=== PATIENT | male | born 1945 | race Caucasian/White ===

== ENCOUNTER → 2016-04-29 | Outpatient (CLI) | payer OTHER, MEDICARE ==
[2016-02-01 15:30] VITALS: BP 132/71
[~2016-04-29] MED LIST: ASPI81TA2 PO; ATOR40TA59 PO; BUPR75TA5 PO; CARV3.12 PO; DOCU-27 PO; LEVO175T5 PO; LUBI8CAP3 PO; POLY17PO5 PO; SPIR25TA PO; ZOLPIDEM 5 MG TABLET. PO ONE
--- NOTE | 2016-05-02 18:15 | SLEEP ---
DATE OF STUDY: 04/29/2016 ATTENDING PHYSICIAN: Clair Garza DO. The patient is 71 years old who weighs 248 pounds with a BMI of 35. The patient has history of obstructive sleep apnea, which was diagnosed in March 2016. His overall AHI was 15 per hour, but supine AHI was 23 per hour and REM AHI of 98 per hour. He had severe PLMS and also had nocturnal hypoxia. Returned to the sleep lab for titration. During the night of study, the patient spent 423 minutes in bed and slept for 320 minutes with a sleep efficiency of 74%. Sleep latency was 24 minutes with a REM latency of 3 and 9 minutes. Overall, sleep architecture showed increased stage I sleep, normal stage II and stage III sleep and reduced REM sleep. The patient was started on CPAP at 12 cm of water as he was unable to tolerate lower pressure. However, as the CPAP pressure requirement increased, he became intolerant to higher CPAP pressure and then was switched to BiPAP starting at 14/9. The best results were seen at a BiPAP pressure of 20/12. At that pressure, the patient had 99 minutes of sleep. The patient had no supine, but REM sleep was observed. The patient's AHI was 2 per hour. The patient did have mask leak on higher CPAP pressures, but he did better on BiPAP. The patient's oxygen saturation remained above 88% at the final BiPAP pressure. The patient used a medium size full face mask. EKG monitoring revealed normal sinus rhythm, average heart rate was 68 beats per minute. No sustained arrhythmias were observed. PLMS were seen at the index of 152 per hour and 6 per hour caused EEG arousals. IMPRESSION: 1. Sleep apnea diagnosed by previous sleep study. 2. Severe PLMS at an index of 152 per hour and 6 per hour caused EEG arousals. RECOMMENDATIONS: 1. BiPAP at a pressure of 20/12 completely eliminated patient's sleep apnea, and should be used on a nightly basis. 2. Follow up in 4-6 weeks to assess compliance with BiPAP and to document clinical improvement. 3. Weight loss is strongly advised. 4. Avoid POACHER OPERATOR depressants. 5. Caution regarding driving until symptoms of sleep apnea resolve with the use of BiPAP. 6. The patient's PLMS can be treated with dopaminergic agonist agents if patient is clinically symptomatic. The patient should also be further evaluated for symptoms of restless legs during the day. MIKHAIL LEON MD DR: TELMA/gerda JOB#: [id number] / [id number] CLAIR Manning
== END | disposition home or self-care (01) ==
LOC: RT 18:34
PROVIDERS: ATTEND Internal Medicine Critical Care Medicine
DX: G47.33 Obstructive sleep apnea (adult) (pediatric) (principal)
CPT/HCPCS: 95811

== ENCOUNTER → 2016-05-30 | Outpatient (CLI) | payer OTHER, MEDICARE ==
[2016-02-01 15:30] VITALS: BP 132/71
[~2016-05-30] MED LIST changes: -ZOLPIDEM 5 MG TABLET. PO ONE
--- NOTE | 2016-05-30 12:45 | RAD ---
CT of the chest without contrast, 05/30/2016: History: Pulmonary nodule follow-up Noncontrast scans were obtained and compared to a study from 11/06/2013. There are at least 5 calcified and noncalcified small pulmonary nodules in the left upper lobe which appear to be unchanged. A small calcified nodule in the medial aspect of the right and a small subpleural nodule in the anterior aspect of the right upper lobe are both unchanged. Several small nodules in both lower lobes also appear to be unchanged. A small nodule in the posterior costophrenic angle on the left was not visible on the previous study, probably due to obscuration by overlying atelectasis. No enlarging pulmonary nodule is seen. There are a few scattered parenchymal scars. There is no evidence of pleural fluid. The thoracic aorta is of normal caliber. Coronary artery calcifications are present, most extensive in the LAD coronary artery. Several small calcified hilar hilar and mediastinal lymph nodes are seen. No adenopathy is evident. Incidental note is made of a small radiopacity within the posterior aspect of the gallbladder compatible with a gallstone. Moderate hypertrophic spurring is present in the spine. A right shoulder prosthesis is partially visualized. IMPRESSION: 1. Stable small bilateral pulmonary nodules, some of which are calcified. The findings are compatible with old granulomatous disease. 2. Coronary artery disease. 3. Cholelithiasis PQRS Compliance Statement: One or more of the following individualized dose reduction techniques were utilized for this examination: 1. Automated exposure control 2. Adjustment of the mA and/or kV according to patient size 3. Use of iterative reconstruction technique
== END | disposition home or self-care (01) ==
LOC: CT 10:28
PROVIDERS: ATTEND Internal Medicine Critical Care Medicine
DX: R91.8 Other nonspecific abnormal finding of lung field (principal); I25.10 Atherosclerotic heart disease of native coronary artery without angina pectoris; K80.20 Calculus of gallbladder without cholecystitis without obstruction
CPT/HCPCS: 71250

== ENCOUNTER → 2016-07-01 | Outpatient (CLI) | payer OTHER, MEDICARE ==
[2016-02-01 15:30] VITALS: BP 132/71
--- NOTE | 2016-07-01 15:28 | CARD ---
APPROVED REPORT EXAM: Two-dimensional and M-mode echocardiogram with Doppler and color Doppler. Other Information Quality : AverageHR: 63bpm Rhythm : NSR INDICATION Cardiac Disease: CAD 2D DIMENSIONS RVDd3.5 (2.9-3.5cm)Left Atrium(2D)3.9 (1.6-4.0cm) IVSd0.9 (0.7-1.1cm)Aortic Root(2D)2.9 (2.0-3.7cm) LVDd5.0 (3.9-5.9cm)LVOT Diameter2.2 (1.8-2.4cm) PWd0.9 (0.7-1.1cm)LVDs3.4 (2.5-4.0cm) FS (%) 31.0 %SV69.0 ml LVEF(%)58.4 (>50%) Aortic Valve AoV Peak Mj.127.1cm/sAoV VTI27.6cm AO Peak GR.6.5mmHgLVOT Peak Mj.119.3cm/s LVOT VTI 27.52cmAO Mean GR.4mmHg MIRI (VMAX)3.33yf7HDK (VTI)3.79cm2 Mitral Valve MV E Nhpwheyj54.9cm/sMV DECEL [id number] MV A Ebxedfgn60.2cm/sMV E Mean Gr.1mmHg MV MIH70hnW/A Ratio1.1 MV A Ktplvbss247wkVKY (PHT)3.45cm2 TDI E/Lateral E'6.0E/Medial E'6.8 Pulmonary Valve PV Peak Lriyuxbj58.9cm/sPV Peak Grad.3mmHg RVOT VTI14.5cm Tricuspid Valve TR P. Gujiezzw430wv/sRAP DZCKIQUJ0xrYk TR Peak Gr.61qgZsDVTB53oxQc Pulmonary Vein S1 Qnxluswt17.2cm/sD2 Mgnzaewj41.1cm/s PVa qllkqtzb177incb LEFT VENTRICLE The left ventricle is normal size. There is normal left ventricular wall thickness. Left ventricle sy stolic function is normal. The Ejection Fraction is 55-60%. There is normal LV segmental wall motion. There is no ventricular septal defect visualized. RIGHT VENTRICLE The right ventricle is normal size. The right ventricular systolic function is normal. ATRIA The left atrium size is normal. The right atrium size is normal. The interatrial septum is intact wit h no evidence for an atrial septal defect or patent foramen ovale as noted on 2-D or Doppler imaging. AORTIC VALVE The aortic valve is trileaflet. The aortic valve is normal in structure and function. Doppler and Col or Flow revealed no significant aortic regurgitation. There is no significant aortic valvular stenosi s. MITRAL VALVE The mitral valve is normal in structure and function. There is no evidence of mitral valve prolapse. There is no mitral valve stenosis. Doppler and Color Flow revealed no mitral valve regurgitation note d. TRICUSPID VALVE The tricuspid valve is normal in structure. Doppler and Color Flow revealed mild tricuspid regurgitat ion. There is mild pulmonary hypertension. The PA pressure was estimated at 30 mmHg. PULMONIC VALVE The pulmonary valve is normal in structure and function. Doppler and Color Flow revealed no pulmonic valvular regurgitation. GREAT VESSELS The aortic root is normal in size. The ascending aorta is normal in size. Normal pulmonary venous raghavendra w (Doppler). The IVC is normal in size and collapses >50% with inspiration. PERICARDIAL EFFUSION There is no pleural effusion. There is no evidence of significant pericardial effusion. Critical Notification Critical Value: No <Conclusion> Left ventricle systolic function is normal. The Ejection Fraction is 55-60%. There is normal LV segmental wall motion. Mild tricuspid regurgitation. The PA pressure was estimated at 30 mmHg. There is no evidence of significant pericardial effusion.
== END | disposition home or self-care (01) ==
LOC: ECHO 08:45
PROVIDERS: ATTEND Internal Medicine Cardiovascular Disease
DX: I25.10 Atherosclerotic heart disease of native coronary artery without angina pectoris (principal)
CPT/HCPCS: 93306

== ENCOUNTER 2016-10-10 20:10 | Inpatient (IN) | payer OTHER, MEDICARE ==
[~2016-10-10] VITALS: Ht 177.8 cm; Wt 113.9 kg
[~2016-10-10 20:10] MED LIST changes: +ASPI-630 PO; -ASPI81TA2 PO; +DOCU-109 PO; -DOCU-27 PO; -LUBI8CAP3 PO; +LUBI8CAP4 PO; +POLY17PO29 PO; -POLY17PO5 PO
[2016-10-10] MEDS ORDERED: IV NORMAL SALINE 1000ML BAG 1,000 ML IV SCH (21:00)
[2016-10-10 21:05] LABS: BASO # 0.1 x10^3/uL (0.0-0.2); BASO % 1 % (0-3); EOS % 3 % (0-3); HEMATOCRIT 43.3 % (39.0-53.0); HEMOGLOBIN 15.3 g/dL (13.0-17.5); LYMPH # 2.5 x10^3/uL (1.0-4.8); LYMPH % 35 % (24-48); MEAN CORPUSCULAR HEMOGLOBIN 33 pg (25-35); MEAN CORPUSCULAR HGB CONC 35 g/dL (31-37); MEAN CORPUSCULAR VOLUME 93 fL (79-100); MONO % 11 % (0-9); NEUT % 49 % (31-73); PLATELET COUNT 270 x10^3/uL (140-400); RED BLOOD COUNT 4.63 x10^6/uL (4.30-5.70); RED CELL DISTRIBUTION WIDTH 13.5 % (11.5-14.5)
[2016-10-10] MEDS ORDERED: ASPIRIN CHEWABLE 81 MG TABLET. PO ONE (21:15)
[2016-10-10 21:16] LABS: CALCIUM 8.6 mg/dL (8.5-10.1); CREATININE 1.3 mg/dL (0.7-1.3); GFR 54.6; POTASSIUM 4.3 mmol/L (3.5-5.1)
[2016-10-10 21:21] LABS: ALBUMIN 3.7 g/dL (3.4-5.0); TOTAL BILIRUBIN 0.6 mg/dL (0.2-1.0); TOTAL PROTEIN 7.4 g/dL (6.4-8.2)
--- NOTE | 2016-10-10 21:53 | PHYS DOC ---
Past Medical History Past Medical History: COPD, Depression, Hypothyroid, OK, Other Additional Past Medical Histor: lad cardiac stents (jan 23), on cpap, Past Surgical History: Knee Replacement, Other Additional Past Surgical Histo: R shoulder arthroscopy;L knee replacement, hardware L arm, fx sternum/ribs Alcohol Use: None Drug Use: None Adult General Chief Complaint Chief Complaint: CHEST PAIN HPI HPI 8-year-old male with a history of coronary artery disease with 2 stents placed after an OK in January 2016, now presents to the emergency department complaining of chest pain. He is a patient of Dr. Ruiz. Patient states she' s been compliant with his baby aspirin and also takes a blood thinner but is not sure what the name of it is. Today he had mid chest pain associated with shortness of breath. It's now resolved. No nausea vomiting or diaphoresis. No productive cough or fever. Pain is not worse with movement. Currently pain-free Review of Systems Review of Systems Constitutional: Denies fever or chills [] Eyes: Denies change in visual acuity, redness, or eye pain [] HENT: Denies nasal congestion or sore throat [] Respiratory: Denies cough or shortness of breath [] Cardiovascular: No additional information not addressed in HPI [] GI: Denies abdominal pain, nausea, vomiting, bloody stools or diarrhea [] : Denies dysuria or hematuria [] Musculoskeletal: Denies back pain or joint pain [] Integument: Denies rash or skin lesions [] Neurologic: Denies headache, focal weakness or sensory changes [] Endocrine: Denies polyuria or polydipsia [] Current Medications Current Medications Current Medications Medications (Trade) Dose Ordered Sig/Marito Start Time Stop Time Status Last Admin Dose Admin Aspirin (Children'S Aspirin) 324 mg 1X ONCE 10/10/16 21:15 10/10/16 21:16 DC 10/10/16 21:43 324 MG Sodium Chloride 1,000 ml @ 100 mls/hr Q10H 10/10/16 21:00 10/11/16 06:59 10/10/16 21:38 100 MLS/HR Allergies Allergies Allergies Coded Allergies Type Severity Reaction Last Updated Verified No Known Drug Allergies 11/06/13 No Physical Exam Physical Exam Well-appearing 8-year-old male no acute distress nontender chest wall clear lungs regular rate and rhythm no tachycardia benign abdomen normal extremities Constitutional: Well developed, well nourished, no acute distress, non-toxic appearance. [] HENT: Normocephalic, atraumatic, bilateral external ears normal, oropharynx moist, no oral exudates, nose normal. [] Eyes: PERRLA, EOMI, conjunctiva normal, no discharge. [] Neck: Normal range of motion, no tenderness, supple, no stridor. [] Cardiovascular:Heart rate regular rhythm, no murmur [] Lungs & Thorax: Bilateral breath sounds clear to auscultation [] Abdomen: Bowel sounds normal, soft, no tenderness, no masses, no pulsatile masses. [] Skin: Warm, dry, no erythema, no rash. [] Back: No tenderness, no CVA tenderness. [] Extremities: No tenderness, no cyanosis, no clubbing, ROM intact, no edema. [] Neurologic: Alert and oriented X 3, normal motor function, normal sensory function, no focal deficits noted. [] Psychologic: Affect normal, judgement normal, mood normal. [] Current Patient Data Vital Signs Vital Signs Date Time Temp Pulse Resp B/P (MAP) Pulse Ox O2 Delivery O2 Flow Rate FiO2 10/10/16 20:15 98.2 72 26 141/75 (97) 97 Room Air 98.2 Lab Values Laboratory Tests Test 10/10/16 20:25 White Blood Count 7.0 x10^3/uL (4.0-11.0) Red Blood Count 4.63 x10^6/uL (4.30-5.70) Hemoglobin 15.3 g/dL (13.0-17.5) Hematocrit 43.3 % (39.0-53.0) Mean Corpuscular Volume 93 fL (79-100) Mean Corpuscular Hemoglobin 33 pg (25-35) Mean Corpuscular Hemoglobin Concent 35 g/dL (31-37) Red Cell Distribution Width 13.5 % (11.5-14.5) Platelet Count 270 x10^3/uL (140-400) Neutrophils (%) (Auto) 49 % (31-73) Lymphocytes (%) (Auto) 35 % (24-48) Monocytes (%) (Auto) 11 % (0-9) H Eosinophils (%) (Auto) 3 % (0-3) Basophils (%) (Auto) 1 % (0-3) Neutrophils # (Auto) 3.4 x10^3uL (1.8-7.7) Lymphocytes # (Auto) 2.5 x10^3/uL (1.0-4.8) Monocytes # (Auto) 0.8 x10^3/uL (0.0-1.1) Eosinophils # (Auto) 0.2 x10^3/uL (0.0-0.7) Basophils # (Auto) 0.1 x10^3/uL (0.0-0.2) Sodium Level 140 mmol/L (136-145) Potassium Level 4.3 mmol/L (3.5-5.1) Chloride Level 104 mmol/L (98-107) Carbon Dioxide Level 26 mmol/L (21-32) Anion Gap 10 (6-14) Blood Urea Nitrogen 16 mg/dL (8-26) Creatinine 1.3 mg/dL (0.7-1.3) Estimated GFR (Cockcroft-Gault) 54.6 BUN/Creatinine Ratio 12 (6-20) Glucose Level 94 mg/dL (70-99) Calcium Level 8.6 mg/dL (8.5-10.1) Total Bilirubin 0.6 mg/dL (0.2-1.0) Aspartate Amino Transferase (AST) 18 U/L (15-37) Alanine Aminotransferase (ALT) 26 U/L (16-63) Alkaline Phosphatase 79 U/L (46-116) Troponin I Quantitative < 0.017 ng/mL (0.000-0.055) Total Protein 7.4 g/dL (6.4-8.2) Albumin 3.7 g/dL (3.4-5.0) Albumin/Globulin Ratio 1.0 (1.0-1.7) Laboratory Tests 10/10/16 20:25 Laboratory Tests 10/10/16 20:25 EKG EKG Normal sinus rhythm at 71 normal axis no STEMI [] Radiology/Procedures Radiology/Procedures Chest x-ray with chronic changes no acute disease interpreted by me. No sig change prior study [] Course & Med Decision Making Course & Med Decision Making Pertinent Labs and Imaging studies reviewed. (See chart for details) Signs and symptoms consistent with chest pain of possible cardiac etiology in an elderly male with a history of known coronary artery disease and 2 prior stents in January 2016. Patient is currently pain-free. EKG is unremarkable. Chest x-ray benign. Labs including troponin are negative. Discussed with patient and family will do observation admission for cardiac workup. Aspirin given. Case discussed with Dr. Valencia customer operations specialist for Dr. Rowland. Dr. Valencia is aware of the history and findings and agrees with inpatient admission his service for cardiac workup [] Dragon Disclaimer Dragon Disclaimer This electronic medical record was generated, in whole or in part, using a voice recognition dictation system. Departure Departure Impression: Primary Impression: Chest pain Disposition: ADMITTED INPATIENT Admitting Physician: William Valencia Condition: STABLE Referrals: RODRIGO GUY MD (PCP) JESSICA HARTLEY MD Oct 10, 2016 21:53
[2016-10-10] MEDS ORDERED: HYDROcodone/APAP 5/325MG 1 TAB TABLET ONE (22:13)
[2016-10-10] MEDS ORDERED: HYDROcodone/APAP 5/325MG 1 TAB TABLET PO ONE (22:30)
[2016-10-11 00:12] VITALS: BP 96/62
[2016-10-11 03:00] VITALS: BP 88/51
[2016-10-11 07:00] VITALS: BP 90/58
--- NOTE | 2016-10-11 08:20 | RAD ---
EXAM: CHEST 1 VIEW History: Chest pain COMPARISON: 01/28/2016 TECHNIQUE: Single portable radiograph of the chest FINDINGS: The cardiac silhouette is unremarkable. The lungs are clear bilaterally. The costophrenic sulci are clear and well demarcated. IMPRESSION: No radiographic evidence of an acute cardiopulmonary process.
--- NOTE | 2016-10-11 08:43 | PDOC2 ---
CARDIOLOGY CONSULT NOTE CHEIF COMPLAINT: Sharp pains Problems: HPI: Pleasant 71 y.o male coming into the hospital with sharp pains. Was in his usual state of health until yesterday around 4 pm Had some sharp chest pains lasting a few seconds Persistent for 3-4 hours, seen in ER and admitted for rule out acs. At home denies any exertional dyspnea, angina, orthopnea PND or syncope No palpitations, nausea or other issues. Compliant with meds. PMHX: CAD s/p PCI HTN DLP SOCHX: , lives with . No alcohol, tob or illicits. FAMHX: Non-contributory CURRENT MEDS: Home meds reviewed. No changes ALLERGIES: Allergies Coded Allergies Type Severity Reaction Last Updated Verified No Known Drug Allergies 11/06/13 No ROS: negative for 01/17 systems reviewed unless otherwise noted above in HPI. PHYSICAL EXAM: Vital Signs: Vital Signs Date Time Temp Pulse Resp B/P (MAP) Pulse Ox O2 Delivery O2 Flow Rate FiO2 10/11/16 07:00 97.8 68 20 90/58 (69) 96 Room Air 97.8 I & O Intake and Output 10/11/16 07:00 Intake Total 50 ml Output Total 700 ml Balance -650 ml Intake Oral 50 ml Output Urine Total 700 ml # Voids 1 Physical Exam: GEN.: No apparent distress. Alert and oriented. HEENT: Head is normocephalic, atraumatic NECK: Supple. LUNGS: Clear to auscultation. HEART: RRR, S1, S2 present. Peripheral pulses intact ABDOMEN: Soft, nontender. Positive bowel sounds. EXTREMITIES: Without any cyanosis. NEUROLOGIC: Normal speech, normal tone PSYCHIATRIC: Normal affect, normal mood. SKIN: No ulcerations DIAGNOSTIC TESTING: EKG unremarkable. Lab Enzymes negative x 1 after 6 hours of pain. ASSESSMENT: 1. non-cardiac chest pain 2. Previous history of CAD 3. HTn 4 DLP PLAN: Low suspicion for ACS, continue present meds. Will await second troponin. If negative, can DC from CV perspective. Continue same meds at home. Thanks for consult CHAD VILLEGAS MD Oct 11, 2016 08:43
[2016-10-11 11:00] VITALS: BP 106/65
--- NOTE | 2016-10-11 11:38 | EKG ---
[facility] [address] [place] [address] Test Date: 2016-10-10 Test Time: 20:14:16 Pat Name: DAVE MARTINEZ Department: Room: Gender: M Operating Engineer: : [id number] Requested By: JESSICA HARTLEY Order Number: [id number] Reading MD: Measurements Intervals [place] Rate: 71 P: 40 WV: 184 QRS: -2 QRSD: 104 T: 41 QT: 372 QTc: 404 Interpretive Statements SINUS RHYTHM LEFTWARD AXIS QRS(T) CONTOUR ABNORMALITY CANNOT RULE OUT ANTEROSEPTAL MYOCARDIAL DAMAGE RI6.01 Unconfirmed report No previous ECG available for comparison
[2016-10-11] MEDS ORDERED: NITR0.4T22 SL (11:58)
[2016-10-11] MEDS ORDERED: SERT50TA PO (11:58)
[2016-10-11] MEDS ORDERED: LUBIPROSTONE 8 MCG CAPSULE PO SCH (12:00)
[2016-10-11] MEDS ORDERED: LEVOTHYROXINE 175 MCG TABLET PO SCH (12:00)
[2016-10-11] MEDS ORDERED: POLYETHYLENE GLYCOL 3350 17 GM PACKET. PO SCH (12:00)
[2016-10-11] MEDS ORDERED: buPROPion 75 MG TABLET. PO SCH (12:00)
[2016-10-11] MEDS ORDERED: DOCUSATE SODIUM 100 MG CAPSULE. PO SCH (12:00)
[2016-10-11] MEDS ORDERED: ASPIRIN CHEWABLE 81 MG TABLET. PO SCH (12:00)
[2016-10-11] MEDS ORDERED: CARVEDILOL 3.125 MG TABLET. PO SCH (12:00)
[2016-10-11] MEDS ORDERED: SPIRONOLACTONE 25 MG TABLET PO SCH (12:00)
--- NOTE | 2016-10-11 12:00 | PDOC1 ---
History and Physical Date of Admission Date of Admission 10/10/16 Identification/Chief Complaint Chief Complaint chest pain Problems: Source Source: Chart review, Patient History of Present Illness History of Present Illness 71year-old male with a history of coronary artery disease with 2 stents placed after an ME in January 2016, now presents to the emergency department complaining of chest pain. He is a patient of Dr. Ruiz. He is on baby aspirin and also takes a blood thinner but is not sure what the name of it is ( ? plavix or Effient for stent). Today he had mid chest pain associated with shortness of breath described as retrosternal discomfort in the lower part of his sternum that lasted for a few minutes and would come and go he had meatloaf for his dinner and pain started shortly after that he denied indigestion or heartburn, It's now resolved. No nausea vomiting or diaphoresis. No productive cough or fever. Pain is not worse with movement. He has been very emotional and more depressed according to his he was talking about dying when she came from work and he shared with her that he has been having chest pain she made him come to the emergency room then Past Medical History Cardiovascular: ME, Hyperlipidemia Pulmonary: COPD Psych: Anxiety, Depression Rheumatologic: Other (osteoarthritis) ENT: Allergic Rhinitis Endocrine: Hypothyroidism Past Surgical History Past Surgical History: Total knee replacement (left), Other (ARTHROSCOPIC right shoulder surgery) Family History Family History: Hypertension, Other Social History Smoke: No ALCOHOL: rare Drugs: None Current Problem List Problem List Problems Medical Problems: (1) Chest pain Status: Acute Current Medications Current Medications Current Medications Medications (Trade) Dose Ordered Sig/Marito Start Time Stop Time Status Last Admin Dose Admin Acetaminophen/ Hydrocodone Bitart (Lortab 5/325) 1 tab STK-MED ONCE 10/10/16 22:13 10/10/16 22:14 DC Aspirin (Children'S Aspirin) 81 mg DAILY 10/11/16 12:00 Atorvastatin Calcium (Lipitor) 40 mg QHS 10/11/16 21:00 Bupropion HCl (Wellbutrin) 75 mg BID 10/11/16 12:00 Carvedilol (Coreg) 3.125 mg BIDWMEALS 10/11/16 12:00 Docusate Sodium (Colace) 100 mg BID 10/11/16 12:00 Levothyroxine Sodium (Synthroid) 175 mcg DAILYAC 10/11/16 12:00 Lubiprostone (Amitiza) 8 mcg BID 10/11/16 12:00 Polyethylene Glycol (miraLAX PACKET) 17 gm DAILY 10/11/16 12:00 Sodium Chloride 1,000 ml @ 100 mls/hr Q10H 10/10/16 21:00 10/11/16 06:59 DC 10/10/16 21:38 100 MLS/HR Spironolactone (Aldactone) 25 mg DAILY 10/11/16 12:00 Allergies Allergies Allergies Coded Allergies Type Severity Reaction Last Updated Verified No Known Drug Allergies 11/06/13 No ROS Review of System CONSTITUTIONAL: No fever or chills EYES: No recent changes SKIN: No rash or itching CARDIOVASCULAR: No syncope, palpitations, or edema, see history of present illness RESPIRATORY: See history of present illness GASTROINTESTINAL: No nausea, vomiting or abdominal pain NEUROLOGICAL: No headaches or weakness ENDOCRINE: No cold or heat intolerance GENITOURINARY: No urgency or frequency of urination MUSCULOSKELETAL: No back pain or joint pain LYMPHATICS: No enlarged lymph nodes PSYCHIATRIC: He has been more depressed and more emotional Physical Exam Physical Exam GEN.: No apparent distress. Alert and oriented. HEENT: Head is normocephalic, atraumatic NECK: Supple. LUNGS: Clear to auscultation. HEART: RRR, S1, S2 present. Peripheral pulses intact ABDOMEN: Soft, nontender. Positive bowel sounds. EXTREMITIES: Without any cyanosis. NEUROLOGIC: Normal speech, normal tone PSYCHIATRIC: Normal affect, normal mood. SKIN: No ulcerations Vitals Vitals Vital Signs Date Time Temp Pulse Resp B/P (MAP) Pulse Ox O2 Delivery O2 Flow Rate FiO2 10/11/16 08:10 Room Air 10/11/16 07:00 97.8 68 20 90/58 (69) 96 97.8 Labs Labs Laboratory Tests Test 10/10/16 20:25 White Blood Count 7.0 x10^3/uL (4.0-11.0) Red Blood Count 4.63 x10^6/uL (4.30-5.70) Hemoglobin 15.3 g/dL (13.0-17.5) Hematocrit 43.3 % (39.0-53.0) Mean Corpuscular Volume 93 fL (79-100) Mean Corpuscular Hemoglobin 33 pg (25-35) Mean Corpuscular Hemoglobin Concent 35 g/dL (31-37) Red Cell Distribution Width 13.5 % (11.5-14.5) Platelet Count 270 x10^3/uL (140-400) Neutrophils (%) (Auto) 49 % (31-73) Lymphocytes (%) (Auto) 35 % (24-48) Monocytes (%) (Auto) 11 % (0-9) Eosinophils (%) (Auto) 3 % (0-3) Basophils (%) (Auto) 1 % (0-3) Neutrophils # (Auto) 3.4 x10^3uL (1.8-7.7) Lymphocytes # (Auto) 2.5 x10^3/uL (1.0-4.8) Monocytes # (Auto) 0.8 x10^3/uL (0.0-1.1) Eosinophils # (Auto) 0.2 x10^3/uL (0.0-0.7) Basophils # (Auto) 0.1 x10^3/uL (0.0-0.2) Sodium Level 140 mmol/L (136-145) Potassium Level 4.3 mmol/L (3.5-5.1) Chloride Level 104 mmol/L (98-107) Carbon Dioxide Level 26 mmol/L (21-32) Anion Gap 10 (6-14) Blood Urea Nitrogen 16 mg/dL (8-26) Creatinine 1.3 mg/dL (0.7-1.3) Estimated GFR (Cockcroft-Gault) 54.6 BUN/Creatinine Ratio 12 (6-20) Glucose Level 94 mg/dL (70-99) Calcium Level 8.6 mg/dL (8.5-10.1) Total Bilirubin 0.6 mg/dL (0.2-1.0) Aspartate Amino Transf (AST/SGOT) 18 U/L (15-37) Alanine Aminotransferase (ALT/SGPT) 26 U/L (16-63) Alkaline Phosphatase 79 U/L (46-116) Troponin I Quantitative < 0.017 ng/mL (0.000-0.055) Total Protein 7.4 g/dL (6.4-8.2) Albumin 3.7 g/dL (3.4-5.0) Albumin/Globulin Ratio 1.0 (1.0-1.7) Laboratory Tests Test 10/10/16 20:25 White Blood Count 7.0 x10^3/uL (4.0-11.0) Red Blood Count 4.63 x10^6/uL (4.30-5.70) Hemoglobin 15.3 g/dL (13.0-17.5) Hematocrit 43.3 % (39.0-53.0) Mean Corpuscular Volume 93 fL (79-100) Mean Corpuscular Hemoglobin 33 pg (25-35) Mean Corpuscular Hemoglobin Concent 35 g/dL (31-37) Red Cell Distribution Width 13.5 % (11.5-14.5) Platelet Count 270 x10^3/uL (140-400) Neutrophils (%) (Auto) 49 % (31-73) Lymphocytes (%) (Auto) 35 % (24-48) Monocytes (%) (Auto) 11 % (0-9) Eosinophils (%) (Auto) 3 % (0-3) Basophils (%) (Auto) 1 % (0-3) Neutrophils # (Auto) 3.4 x10^3uL (1.8-7.7) Lymphocytes # (Auto) 2.5 x10^3/uL (1.0-4.8) Monocytes # (Auto) 0.8 x10^3/uL (0.0-1.1) Eosinophils # (Auto) 0.2 x10^3/uL (0.0-0.7) Basophils # (Auto) 0.1 x10^3/uL (0.0-0.2) Sodium Level 140 mmol/L (136-145) Potassium Level 4.3 mmol/L (3.5-5.1) Chloride Level 104 mmol/L (98-107) Carbon Dioxide Level 26 mmol/L (21-32) Anion Gap 10 (6-14) Blood Urea Nitrogen 16 mg/dL (8-26) Creatinine 1.3 mg/dL (0.7-1.3) Estimated GFR (Cockcroft-Gault) 54.6 BUN/Creatinine Ratio 12 (6-20) Glucose Level 94 mg/dL (70-99) Calcium Level 8.6 mg/dL (8.5-10.1) Total Bilirubin 0.6 mg/dL (0.2-1.0) Aspartate Amino Transf (AST/SGOT) 18 U/L (15-37) Alanine Aminotransferase (ALT/SGPT) 26 U/L (16-63) Alkaline Phosphatase 79 U/L (46-116) Troponin I Quantitative < 0.017 ng/mL (0.000-0.055) Total Protein 7.4 g/dL (6.4-8.2) Albumin 3.7 g/dL (3.4-5.0) Albumin/Globulin Ratio 1.0 (1.0-1.7) VTE Prophylaxis Ordered VTE Prophylaxis Devices: No (short stay) VTE Pharmacological Prophylaxi: Yes Assessment/Plan Assessment/Plan 1- chest pain not cardiac probably esophageal spasm or anxiety 2-depression 3-history of coronary artery disease status post stent in January 2016 4-COPD stable 5-hyperlipidemia stable ANDERSON MCKEON MD Oct 11, 2016 12:00
--- NOTE | 2016-10-11 12:01 | PDOC3 ---
Discharge Summary* Date of Admission: Oct 10, 2016 Date of Discharge: Oct 11, 2016 Admitting Diagnosis Problems Medical Problems: (1) Chest pain Status: Acute Problems: Final Diagnosis 1- chest pain not cardiac probably esophageal spasm or anxiety, he was given a prescription for nitroglycerin sublingual 2-depression he is on Wellbutrin but we added Zoloft 3-history of coronary artery disease status post stent in January 2016 4-COPD stable 5-hyperlipidemia stable Problems Medical Problems: (1) Chest pain Status: Acute CONSULTS Cardiology Dr. Russo Procedures Chest x-ray Brief Hospital Course Mr. Gleason is a 71 old male who presented with chest pain retrosternal in the lower sternal area on and off for 4-5 hours he was free of pain at the time he presented to the emergency room, his cardiac enzymes were negative he was evaluated by cardiology and was felt to have noncardiac chest pain recommendation was to discharge and follow up with cardiology in 6 weeks as outpatient, the way he described his pain sounded like esophageal spasm and he was advised to use nitroglycerin sublingual when necessary if he uses that 3 times in 24 hours was recurrence of the pain or no improvement to come back to emergency room, he was emotional and depressed and he was recommended to continue Wellbutrin and add Zoloft he will see his primary care doctor Dr. wyatt as outpatient in 1 week, may need a TSH checked within since this was not done in the hospital Disposition/Orders: D/C to Home CONDITION AT DISCHARGE: Improved, Stable Diet: Cardiac Scheduled Aspirin (Aspirin), 1 TAB PO DAILY Atorvastatin Calcium (Atorvastatin Calcium), 1 TAB PO DAILY Bupropion Hcl (Wellbutrin), 75 MG PO BID, (Reported) Carvedilol (Coreg), 1 TAB PO BID Docusate Sodium (Colace), 1 CAP PO BID Levothyroxine Sodium (Levothyroxine Sodium), 175 MCG PO DAILYAC, (Reported) Lubiprostone (Amitiza), 1 CAP PO BID Polyethylene Glycol 3350 (Miralax), 1 PACKET PO DAILY Sertraline Hcl (Zoloft), 1 TAB PO DAILY Spironolactone (Aldactone), 1 TAB PO DAILY Scheduled PRN Nitroglycerin (NITROGLYCERIN SubLingual), 0.4 MG SL PRN Q5MIN PRN for CHEST PAIN FOLLOW UP APPOINTMENT: Dr. wyatt in 1 week Cardiology in 6 week Time Spent Total time spent with patient 45 minutes for coordination of care, counseling, and education. ANDERSON MCKEON MD Oct 11, 2016 12:01
[2016-10-11 12:34] VITALS: BP 106/65
[2016-10-11] MEDS ORDERED: ATORVASTATIN CALCIUM 40 MG TABLET. PO SCH (21:00)
== END 2016-10-11 14:30 | disposition home or self-care (01) | DRG 392 ==
LOC: ER 20:10 → 5 NORTH 21:48
PROVIDERS: ADMIT Internal Medicine; ATTEND Internal Medicine
DX: K22.4 Dyskinesia of esophagus (principal); F41.9 Anxiety disorder, unspecified; E03.9 Hypothyroidism, unspecified; E78.5 Hyperlipidemia, unspecified; F32.9 Major depressive disorder, single episode, unspecified; I10 Essential (primary) hypertension; I25.10 Atherosclerotic heart disease of native coronary artery without angina pectoris; J44.9 Chronic obstructive pulmonary disease, unspecified; Z96.652 Presence of left artificial knee joint; J30.9 Allergic rhinitis, unspecified; M19.90 Unspecified osteoarthritis, unspecified site; R07.89 Other chest pain; Z95.5 Presence of coronary angioplasty implant and graft; I25.2 Old myocardial infarction; Z82.49 Family history of ischemic heart disease and other diseases of the circulatory system
CPT/HCPCS: 36415; 71010; 80053; 84484; 85027; 93005; J7030; 99285-25

== ENCOUNTER → 2017-11-27 | Day surgery (SDC) | payer OTHER, MEDICARE ==
[~2017-11-27] MED LIST changes: +IV RINGERS,LACTATED 1000ML 1,000 ML IV SCH; +LIDOCAINE 1% PF 2 ML VIAL. ID PRN; +LIDOCAINE 2% PF Vial for OR 5 ML VIAL. ONE; +MIDAZOLAM HCL/PF 2 MG/2 ML VIAL. IV PRN; +NITR0.4T22 SL; +PROPOFOL 40 ML IV ONE; +SERT50TA PO; +TICA90TA PO; +fentaNYL PF VIAL 100 MCG/2 ML VIAL IV PRN
[2017-11-27 09:04] VITALS: BP 117/69
== END | disposition home or self-care (01) ==
LOC: SURG 07:13
PROVIDERS: ATTEND Internal Medicine Gastroenterology
DX: K57.30 Diverticulosis of large intestine without perforation or abscess without bleeding (principal); K64.0 First degree hemorrhoids; M19.90 Unspecified osteoarthritis, unspecified site; F32.9 Major depressive disorder, single episode, unspecified; J43.9 Emphysema, unspecified; E03.9 Hypothyroidism, unspecified; I25.2 Old myocardial infarction; G47.30 Sleep apnea, unspecified; Z80.0 Family history of malignant neoplasm of digestive organs; I11.9 Hypertensive heart disease without heart failure; Z82.49 Family history of ischemic heart disease and other diseases of the circulatory system; Z87.891 Personal history of nicotine dependence; Z79.82 Long term (current) use of aspirin; Z79.899 Other long term (current) drug therapy; Z98.52 Vasectomy status; Z96.611 Presence of right artificial shoulder joint; Z96.652 Presence of left artificial knee joint
CPT/HCPCS: 45378; J2001; J2704

== ENCOUNTER → 2017-12-08 | Outpatient (CLI) | payer OTHER, MEDICARE ==
[2017-11-27 09:04] VITALS: BP 117/69
[~2017-12-08] MED LIST changes: -IV RINGERS,LACTATED 1000ML 1,000 ML IV SCH; -LIDOCAINE 1% PF 2 ML VIAL. ID PRN; -LIDOCAINE 2% PF Vial for OR 5 ML VIAL. ONE; -MIDAZOLAM HCL/PF 2 MG/2 ML VIAL. IV PRN; -PROPOFOL 40 ML IV ONE; -fentaNYL PF VIAL 100 MCG/2 ML VIAL IV PRN
--- NOTE | 2017-12-08 16:24 | RAD ---
CHEST PA LATERAL Clinical indications: COPD COMPARISON: October 10, 2016. Findings: No acute lung infiltrate or pleural effusion or pulmonary edema or lung mass or pneumothorax is seen. The heart size, pulmonary vasculature, mediastinum and both sera are unremarkable. The osseous structures appear intact. Impression: No acute radiographic abnormality is seen. Electronically signed by: Jason Romero MD (12/08/2017 4:21 PM) [place] [id number]
== END | disposition home or self-care (01) ==
LOC: RAD 12:23
PROVIDERS: ATTEND Internal Medicine Critical Care Medicine
DX: J44.9 Chronic obstructive pulmonary disease, unspecified (principal); I25.2 Old myocardial infarction; I11.9 Hypertensive heart disease without heart failure; E03.9 Hypothyroidism, unspecified; I25.10 Atherosclerotic heart disease of native coronary artery without angina pectoris; Z79.82 Long term (current) use of aspirin; E66.9 Obesity, unspecified; Z96.611 Presence of right artificial shoulder joint; Z96.652 Presence of left artificial knee joint; Z95.5 Presence of coronary angioplasty implant and graft; Z95.810 Presence of automatic (implantable) cardiac defibrillator; Z87.891 Personal history of nicotine dependence; Z68.39 Body mass index [BMI] 39.0-39.9, adult; Z80.0 Family history of malignant neoplasm of digestive organs; Z82.49 Family history of ischemic heart disease and other diseases of the circulatory system
CPT/HCPCS: 71046

== ENCOUNTER → 2018-07-27 | Outpatient (CLI) | payer OTHER, MEDICARE ==
[2017-11-27 09:04] VITALS: BP 117/69
--- NOTE | 2018-07-27 10:00 | CARD ---
MR#: [id number] Date of Study: 07/27/2018 Ordering Physician: CHAD VILLEGAS, Referring Physician: CHAD VILLEGAS, Tech: Kady Shea ANDREZ APPROVED REPORT EXAM: Two-dimensional and M-mode echocardiogram with Doppler and color Doppler. Other Information Quality : Fair Technically limited study due to body habitus. INDICATION Cardiac Disease: CAD 2D DIMENSIONS RVDd2.7 (2.9-3.5cm)Left Atrium(2D)3.9 (1.6-4.0cm) IVSd1.0 (0.7-1.1cm)Aortic Root(2D)3.2 (2.0-3.7cm) LVDd4.5 (3.9-5.9cm)LVOT Diameter2.2 (1.8-2.4cm) PWd1.0 (0.7-1.1cm)LVDs3.4 (2.5-4.0cm) FS (%) 24.9 %SV45.8 ml LVEF(%)50.0 (>50%) Aortic Valve AoV Peak Mj.124.1cm/sAoV VTI26.4cm AO Peak GR.6.2mmHgLVOT Peak Mj.107.1cm/s LVOT VTI 22.08cmAO Mean GR.3mmHg MIRI (VMAX)3.20hr1FST (VTI)3.25cm2 Mitral Valve MV E Rhidywvn84.7cm/sMV DECEL NOXP405id MV A Lupxkgba38.4cm/sMV PEM89ci E/A Ratio0.8MVA (PHT)3.00cm2 TDI E/Lateral E'7.4E/Medial E'10.2 Pulmonary Vein S1 Nebtqptx06.4cm/sD2 Bqyoxocc93.4cm/s LEFT VENTRICLE The left ventricle is normal size. There is normal left ventricular wall thickness. The left ventricu lar systolic function is normal and the ejection fraction is within normal range. The Ejection Fracti on is 50-55%. There is normal LV segmental wall motion. Transmitral Doppler flow pattern is Grade I-a bnormal relaxation pattern. RIGHT VENTRICLE The right ventricle is normal size. The right ventricular systolic function is normal. ATRIA The left atrium size is normal. The right atrium size is normal. The interatrial septum is intact wit h no evidence for an atrial septal defect or patent foramen ovale as noted on 2-D or Doppler imaging. AORTIC VALVE The aortic valve is not well visualized but appears to be functioning normally by Doppler interrogati on. Doppler and Color Flow revealed no significant aortic regurgitation. There is no significant aort ic valvular stenosis. MITRAL VALVE The mitral valve is calcified but opens well. There is no evidence of mitral valve prolapse. There is no mitral valve stenosis. Doppler and Color Flow revealed no mitral valve regurgitation noted. TRICUSPID VALVE The tricuspid valve is normal in structure and function. Doppler and Color Flow revealed physiologica l tricuspid regurgitation. There is no tricuspid valve stenosis. PULMONIC VALVE The pulmonic valve is not well visualized. Doppler and Color Flow revealed trace to mild pulmonic sia vular regurgitation. There is no pulmonic valvular stenosis. GREAT VESSELS The aortic root is normal in size. The ascending aorta is normal in size. The IVC is normal in size a nd collapses >50% with inspiration. PERICARDIAL EFFUSION There is no evidence of significant pericardial effusion. Critical Notification Critical Value: No <Conclusion> The left ventricular systolic function is normal and the ejection fraction is within normal range. Th e Ejection Fraction is 50-55%. There is normal LV segmental wall motion. Technically difficult study. Signed by : Chad Villegas, Electronically Approved : 07/27/2018 09:59:47
== END | disposition home or self-care (01) ==
LOC: ECHO 09:02
PROVIDERS: ATTEND Internal Medicine Cardiovascular Disease
DX: I08.8 Other rheumatic multiple valve diseases (principal); I25.10 Atherosclerotic heart disease of native coronary artery without angina pectoris; Z87.891 Personal history of nicotine dependence
CPT/HCPCS: 93306

== ENCOUNTER 2019-06-24 13:47 | Emergency (ER) | payer OTHER, MEDICARE ==
[~2019-06-24] VITALS: Ht 177.8 cm; Wt 130.9 kg
--- NOTE | 2019-06-24 14:39 | PHYS DOC ---
Past Medical History Past Medical History: COPD, Depression, Hypothyroid, [place], Other Additional Past Medical Histor: lad cardiac stents (jan 23), on cpap, Past Surgical History: Knee Replacement, Other Additional Past Surgical Histo: R shoulder arthroscopy;L knee replacement, hardware L arm, fx sternum/ribs Smoking Status: Former Smoker Alcohol Use: None Drug Use: None Adult General Chief Complaint Chief Complaint: SHORTNESS OF BREATH [facility] HPI Patient is a 74 year old male patient presented with shortness of breath. Patient states he started having shortness of breath last night when he started to experience some right lower back pain. States he has never had back pain like this in the past, states he was just laying there when this started, had been getting little bit worse as the night went on. States no recent fever. States he does have a COPD history, feels his breathing has gotten better after the pain was under control after taking some Tylenol this morning. States no shortness of breath at this time, but does continue to complain of some pain in his right lower back. Denies any trauma. Denies any change in urination. Den ies any nausea, vomiting, diarrhea. States he normally has 3 bowel movements a day, he had 3 yesterday, however has not had 1 yet today. States he had take some long-acting Tylenol this morning, he does not want any pain medications at this time Review of Systems Review of Systems Constitutional: Denies fever or chills [] HENT: Denies nasal congestion or sore throat [] Respiratory: Denies cough states shortness of breath related to discomfort, states no exertional shortness of breath that is worse than any other day Cardiovascular: No additional information not addressed in HPI denies chest pain, pressure [] GI: Denies abdominal pain, nausea, vomiting, bloody stools or diarrhea does complain of right lower back pain, states is stabbing pain. [] : Denies dysuria or hematuria [] Musculoskeletal: Denies joint pain [] Integument: Denies rash or skin lesions [] Neurologic: Denies headache, focal weakness or sensory changes [] Endocrine: Denies polyuria or polydipsia [] All other systems were reviewed and found to be within normal limits, except as documented in this note. Current Medications Current Medications Current Medications Medications (Trade) Dose Ordered Sig/Marito Start Time Stop Time Status Last Admin Dose Admin Ketorolac Tromethamine (Toradol 15mg Vial) 15 mg 1X ONCE 06/24/19 15:00 06/24/19 15:01 DC 06/24/19 15:01 15 MG Morphine Sulfate (Morphine Sulfate) 2 mg PRN Q2MIN PRN 06/24/19 15:00 06/24/19 16:38 DC 06/24/19 15:01 2 MG Allergies Allergies Allergies Coded Allergies Type Severity Reaction Last Updated Verified No Known Drug Allergies 11/27/17 No Physical Exam Physical Exam Constitutional: Well developed, well nourished, obese, no acute distress, non- toxic appearance. [] HENT: Normocephalic, atraumatic, oropharynx moist, no oral exudates, nose normal. [] Neck: Normal range of motion, no tenderness, supple, no stridor. [] Cardiovascular:Heart rate regular rhythm, no murmur [] Lungs & Thorax: Bilateral breath sounds clear to auscultation, patient speaking in multiple word sentences with no noted air hunger. [] Abdomen: Bowel sounds normal, soft, round, no tenderness, no masses, no pulsati le masses. [] Skin: Warm, dry, no erythema, no rash. Small abrasion noted to right lower back inferior and lateral to where patient notes discomfort [] Back: No tenderness, CVA tenderness to right lower back. [] Extremities: No tenderness, no cyanosis, no clubbing, ROM intact, no edema. [] Neurologic: Alert and oriented X 3, normal motor function, normal sensory function, no focal deficits noted. [] Psychologic: Affect normal, judgement normal, mood normal. [] Current Patient Data Vital Signs Vital Signs Date Time Temp Pulse Resp B/P (MAP) Pulse Ox O2 Delivery O2 Flow Rate FiO2 06/24/19 15:55 98.1 60 134/62 (86) 96 98.1 06/24/19 15:30 Room Air 06/24/19 14:23 20 Lab Values Laboratory Tests Test 06/24/19 15:25 06/24/19 15:34 Urine Collection Type Unknown Urine Color Yellow Urine Clarity Clear Urine pH 6.5 (<5.0-8.0) Urine Specific [place] <=1.005 (1.000-1.030) Urine Protein Negative mg/dL (NEG-TRACE) Urine Glucose (UA) Negative mg/dL (NEG) Urine Ketones (Stick) Negative mg/dL (NEG) Urine Blood Negative (NEG) Urine Nitrite Negative (NEG) Urine Bilirubin Negative (NEG) Urine Urobilinogen Dipstick 0.2 mg/dL (0.2 mg/dL) Urine Leukocyte Esterase Negative (NEG) Urine RBC Rare /HPF (0-2) Urine WBC 0 /HPF (0-4) Urine Squamous Epithelial Cells Occ /LPF Urine Bacteria 0 /HPF (0-FEW) White Blood Count 10.0 x10^3/uL (4.0-11.0) Red Blood Count 4.96 x10^6/uL (4.30-5.70) Hemoglobin 16.2 g/dL (13.0-17.5) Hematocrit 47.2 % (39.0-53.0) Mean Corpuscular Volume 95 fL (79-100) Mean Corpuscular Hemoglobin 33 pg (25-35) Mean Corpuscular Hemoglobin Concent 34 g/dL (31-37) Red Cell Distribution Width 13.5 % (11.5-14.5) Platelet Count 226 x10^3/uL (140-400) Neutrophils (%) (Auto) 64 % (31-73) Lymphocytes (%) (Auto) 22 % (24-48) L Monocytes (%) (Auto) 11 % (0-9) H Eosinophils (%) (Auto) 2 % (0-3) Basophils (%) (Auto) 1 % (0-3) Neutrophils # (Auto) 6.4 x10^3/uL (1.8-7.7) Lymphocytes # (Auto) 2.2 x10^3/uL (1.0-4.8) Monocytes # (Auto) 1.1 x10^3/uL (0.0-1.1) Eosinophils # (Auto) 0.2 x10^3/uL (0.0-0.7) Basophils # (Auto) 0.1 x10^3/uL (0.0-0.2) Sodium Level 138 mmol/L (136-145) Potassium Level 4.6 mmol/L (3.5-5.1) Chloride Level 103 mmol/L (98-107) Carbon Dioxide Level 28 mmol/L (21-32) Anion Gap 7 (6-14) Blood Urea Nitrogen 13 mg/dL (8-26) Creatinine 1.3 mg/dL (0.7-1.3) Estimated GFR (Cockcroft-Gault) 54.1 BUN/Creatinine Ratio 10 (6-20) Glucose Level 95 mg/dL (70-99) Lactic Acid Level 0.9 mmol/L (0.4-2.0) Calcium Level 9.2 mg/dL (8.5-10.1) Magnesium Level 2.0 mg/dL (1.8-2.4) Total Bilirubin 0.9 mg/dL (0.2-1.0) Aspartate Amino Transferase (AST) 20 U/L (15-37) Alanine Aminotransferase (ALT) 32 U/L (16-63) Alkaline Phosphatase 69 U/L (46-116) Troponin I Quantitative < 0.017 ng/mL (0.000-0.055) Total Protein 7.3 g/dL (6.4-8.2) Albumin 3.9 g/dL (3.4-5.0) Albumin/Globulin Ratio 1.1 (1.0-1.7) Laboratory Tests 06/24/19 15:34 Laboratory Tests 06/24/19 15:[address] changes or STEMI latoya Dr Butt. Sinus rhythm[] Radiology/Procedures Radiology/Procedures []Findings: Lung Bases: Interstitial changes in the lung bases Liver: Unremarkable Gallbladder: Contracted but there does appear to be at least one gallstone Spleen: Unremarkable. Pancreas: Unremarkable. Adrenal glands: Unremarkable. Right kidney: No suspicious abnormality. Left kidney: No suspicious abnormality. Aorta: Atherosclerotic calcification. Retroperitoneum: Unremarkable. GI tract: Normal-appearing appendix is seen focally dilated transverse colon is present. A obstructing mass or abnormality is not apparent distal to this area.. Bladder is distended.. Impression: Interstitial changes seen in the lung bases. An interstitial pneumonitis is not excluded but this could reflect interstitial fibrosis. Cholelithiasis. No suggestion of acute cholecystitis is apparent. Dilated transverse colon with no definite obstructing mass. A developing obstruction or ileus is not excluded. Urinary retention. Electronically signed by: David Salmon MD (06/24/2019 3:03 PM) [id number] COMPARISON: 12/08/2017 FINDINGS/ IMPRESSION: 1. Evaluation is limited given motion artifact. 2. Heart is borderline enlarged. 3. No lobar consolidation although patchy opacities bilateral lung bases likely atelectasis. 4. No pleural effusion or pneumothorax. 5. Elevation right hemidiaphragm. Electronically signed by: Alber Craven MD (06/24/2019 3:01 PM) [email or web address] Course & Med Decision Making Course & Med Decision Making Pertinent Labs and Imaging studies reviewed. (See chart for details) [Patient reports he feels great now. states pain is gone. States the pain only came when he was sleeping, states this was what caused his SOA. Discussed likely muscular due to location with unremarkable imaging. Discussed continued use of fluid and hydration, consideration for ibuprofen at 11 PM tonight, Tylenol intermittently. Follow-up with primary care provider. If discomfort returns, any nausea, vomiting, continue lack of bowel movement please return ] Dragon Disclaimer Dragon Disclaimer This electronic medical record was generated, in whole or in part, using a voice recognition dictation system. Departure Departure Impression: Primary Impression: Lower back pain Disposition: HOME, SELF-CARE Condition: STABLE Referrals: MEI MORGAN (PCP) Patient Instructions: Back Pain, Adult Additional Instructions: As we discussed, your back pain is likely related to a muscle in your back. You may continue to take Tylenol or ibuprofen for this, your next dose of ibuprofen can be 11 PM tonight. Make sure drinking plenty of fluids, taking your regular medications. If you do not have a bowel movement in the next 2 days, if you start to feel nauseous, or vomit, please return to the ER or talk to your primar y care provider to further evaluate your bowel for any concern there. There was no noted bowel obstruction, but they could not rule out slowed bowel activity, but with your recent bowel movements yesterday and no nausea or vomiting, this is less likely the finding, given your pain in your lower back. Problem Qualifiers Primary Impression: Lower back pain Chronicity: acute Back pain laterality: right Sciatica presence: without sciatica Qualified Codes: M54.5 - Low back pain ANGELINE SQUIRES APRN Jun 24, 2019 14:39
[2019-06-24] MEDS ORDERED: MORPHINE SULFATE 2 MG/ML VIAL. IV PRN (15:00)
[2019-06-24] MEDS ORDERED: KETOROLAC 15 MG/ML VIAL. IVP ONE (15:00)
--- NOTE | 2019-06-24 15:04 | RAD ---
EXAM: AP View of the chest DATE: 06/24/2019 2:32 PM INDICATION: Shortness of air, back pain COMPARISON: 12/08/2017 FINDINGS/ IMPRESSION: 1. Evaluation is limited given motion artifact. 2. Heart is borderline enlarged. 3. No lobar consolidation although patchy opacities bilateral lung bases likely atelectasis. 4. No pleural effusion or pneumothorax. 5. Elevation right hemidiaphragm. Electronically signed by: Alber Craven MD (06/24/2019 3:01 PM) [facility]
--- NOTE | 2019-06-24 15:06 | RAD ---
CT SCAN OF THE ABDOMEN WITHOUT IV CONTRAST. History: Right flank pain Comparison:None. PQRS Compliance Statement: One or more of the following individualized dose reduction techniques were utilized for this examination: 1. Automated exposure control 2. Adjustment of the mA and/or kV according to patient size 3. Use of iterative reconstruction technique Procedure: Contiguous axial images of the abdomen and pelvis were performed. . Lack of intravenous contrast will limit test sensitiviy and specificity parameters for many processes. Findings: Lung Bases: Interstitial changes in the lung bases Liver: Unremarkable Gallbladder: Contracted but there does appear to be at least one gallstone Spleen: Unremarkable. Pancreas: Unremarkable. Adrenal glands: Unremarkable. Right kidney: No suspicious abnormality. Left kidney: No suspicious abnormality. Aorta: Atherosclerotic calcification. Retroperitoneum: Unremarkable. GI tract: Normal-appearing appendix is seen focally dilated transverse colon is present. A obstructing mass or abnormality is not apparent distal to this area.. Bladder is distended.. Impression: Interstitial changes seen in the lung bases. An interstitial pneumonitis is not excluded but this could reflect interstitial fibrosis. Cholelithiasis. No suggestion of acute cholecystitis is apparent. Dilated transverse colon with no definite obstructing mass. A developing obstruction or ileus is not excluded. Urinary retention. Electronically signed by: David Salmon MD (06/24/2019 3:03 PM) [id number]
[2019-06-24 15:33] LABS: BILIRUBIN,URINE NEGATIVE (NEG); CLARITY,URINE CLEAR; COLOR,URINE YELLOW; NITRITE,URINE NEGATIVE (NEG); PH,URINE 6.5 (<5.0-8.0); PROTEIN,URINE NEGATIVE (NEG-TRACE); UROBILINOGEN,URINE 0.2 mg/dL (0.2 mg/dL)
[2019-06-24 15:38] LABS: BACTERIA,URINE 0 /HPF (0-FEW); RBC,URINE RARE /HPF (0-2); SQUAMOUS EPITHELIAL CELL,UR OCC /LPF; WBC,URINE 0 /HPF (0-4)
[2019-06-24 15:43] LABS: BASO # 0.1 x10^3/uL (0.0-0.2); BASO % 1 % (0-3); EOS # 0.2 x10^3/uL (0.0-0.7); EOS % 2 % (0-3); HEMATOCRIT 47.2 % (39.0-53.0); HEMOGLOBIN 16.2 g/dL (13.0-17.5); LYMPH # 2.2 x10^3/uL (1.0-4.8); LYMPH % 22 % (24-48); MEAN CORPUSCULAR HEMOGLOBIN 33 pg (25-35); MEAN CORPUSCULAR HGB CONC 34 g/dL (31-37); MEAN CORPUSCULAR VOLUME 95 fL (79-100); MONO # 1.1 x10^3/uL (0.0-1.1); MONO % 11 % (0-9); NEUT # 6.4 x10^3/uL (1.8-7.7); NEUT % 64 % (31-73); PLATELET COUNT 226 x10^3/uL (140-400); RED BLOOD COUNT 4.96 x10^6/uL (4.30-5.70); RED CELL DISTRIBUTION WIDTH 13.5 % (11.5-14.5)
[2019-06-24 15:53] LABS: CALCIUM 9.2 mg/dL (8.5-10.1); CREATININE 1.3 mg/dL (0.7-1.3); GFR 54.1; POTASSIUM 4.6 mmol/L (3.5-5.1)
[2019-06-24 15:55] VITALS: BP 134/62
[2019-06-24 15:59] LABS: ALBUMIN 3.9 g/dL (3.4-5.0); ALBUMIN/GLOBULIN RATIO 1.1 (1.0-1.7); TOTAL BILIRUBIN 0.9 mg/dL (0.2-1.0); TOTAL PROTEIN 7.3 g/dL (6.4-8.2)
--- NOTE | 2019-06-25 03:50 | EKG ---
[facility] [address] [place] [address] Test Date: 2019-06-24 Test Time: 14:13:34 Pat Name: DAVE MARTINEZMarianneRoxana Department: Room: Gender: Loan Approver: : 1945 Requested By: ANGELINE SQUIRES Order Number: [id number] Reading MD: Measurements Intervals [place] Rate: 62 P: 48 IN: 190 QRS: -2 QRSD: 114 T: 51 QT: 398 QTc: 406 Interpretive Statements SINUS RHYTHM LEFTWARD AXIS QRS(T) CONTOUR ABNORMALITY CONSIDER ANTEROSEPTAL MYOCARDIAL DAMAGE POSSIBLY ABNORMAL ECG RI6.01 No previous ECG available for comparison
== END 2019-06-24 16:38 | disposition home or self-care (01) ==
LOC: ER 13:47
DX: M54.5 Low back pain (principal); R06.02 Shortness of breath; J44.9 Chronic obstructive pulmonary disease, unspecified; I25.2 Old myocardial infarction; E03.9 Hypothyroidism, unspecified; Z87.891 Personal history of nicotine dependence; Z95.5 Presence of coronary angioplasty implant and graft
CPT/HCPCS: 36415; 71045; 74176; 80053; 81001; 83605; 83735; 84484; 85025; 93005; 96374; 96375; 99285; J1885; J2270